=== PATIENT | female | born 1975 | race Two or more races ===

== ENCOUNTER 2017-04-17 15:51 | Inpatient (IN) | payer OTHER ==
[2017-04-17 17:48] VITALS: BMI 32.9
--- NOTE | 2017-04-17 20:49 | HP ---
CIWA Score - CIWA Score Nausea/Vomitin-No Nausea/No Vomiting Muscle Tremors: 3 Anxiety: 4-Mod. Anxious/Guarded Agitation: 4-Moderately Restless Paroxysmal Sweats: 3 Orientation: 3-Disoriented Date>2 days Tacttile Disturbances: 0-None Auditory Disturbances: 0-None Visual Disturbances: 0-None Headache: 0-None Present CIWA-Ar Total Score: 17 Admission ROS BHS - HPI Chief Complaint: SEEKING DETOX FOR ALCOHOLISM Allergies/Adverse Reactions: Allergies Allergy/AdvReac Type Severity Reaction Status Date / Time No Known Allergies Allergy Verified 04/17/17 19:18 History of Present Illness: 42 Y.O FEMALE ADMIITED TO DETOX FOR ALCOHOLISM AND OPIOID DEPENDENCE. CLIENT REPORTS SHE IS CURRENTLY ON MMTP AT [facility]. REPORTS LDM YESTERDAY METHADONE 50 MG. Exam Limitations: No Limitations - Ebola screening Have you traveled outside of the country in the last 21 days: No Have you had contact with anyone from an Ebola affected area: No Have you been sick,other than usual withdrawal symptoms: No Do you have a fever: No - Review of Systems Constitutional: Chills, Loss of Appetite, Malaise, Night Sweats, Changes in sleep EENT: reports: No Symptoms Reported Respiratory: reports: Shortness of Breath Cardiac: reports: Chest Pain GI: reports: No Symptoms Reported : reports: No Symptoms Reported Musculoskeletal: reports: Back Pain Integumentary: reports: No Symptoms Reported Neuro: reports: No Symptoms reported Endocrine: reports: No Symptoms Reported Hematology: reports: No Symptoms Reported Psychiatric: reports: Anxious, Depressed Other Systems: Reviewed and Negative Patient History - Patient Medical History Hx Anemia: No Hx Asthma: No Hx Chronic Obstructive Pulmonary Disease (COPD): No Hx Cancer: No Hx Cardiac Disorders: No Hx Congestive Heart Failure: No Hx Hypertension: No Hx Hypercholesterolemia: No Hx Pacemaker: No HX Cerebrovascular Accident: No Hx Seizures: No Hx Dementia: No Hx Diabetes: No Hx Gastrointestinal Disorders: No Hx Liver Disease: No Hx Genitourinary Disorders: No Hx Sexually Transmitted Disorders: No Hx Renal Disease (ESRD): No Hx Thyroid Disease: No Hx Human Immunodeficiency Virus (HIV): No Hx Hepatitis C: No Hx Depression: Yes (ON MEDS) Hx Suicide Attempt: Yes (LAST ATTEMPT 2005 SLASHING OF WRIST. PRESENTLY DENIES SI) Hx Bipolar Disorder: No Hx Schizophrenia: Yes (ON MEDS) - Patient Surgical History Past Surgical History: Yes Hx Neurologic Surgery: No Hx Cataract Extraction: No Hx Cardiac Surgery: No Hx Lung Surgery: No Hx Breast Surgery: No Hx Breast Biopsy: No Hx Appendectomy: No Hx Cholecystectomy: Yes ([facility]) Hx Genitourinary Surgery: No Hx Section: No Hx Orthopedic Surgery: No Anesthesia Reaction: No - PPD History Previous Implant?: No Documented Results: Positive w/o proof Implanted On Prior [facility] Admission?: No PPD to be Administered?: No - Reproductive History Patient is a Female of Child Bearing Age (11 -55 yrs old): Yes Last Menstrual Period: 03/24/17 Patient : No (NEGATIVE UHCG TODAY) - Smoking Cessation Smoking history: Current every day smoker Have you smoked in the past 12 months: Yes Aproximately how many cigarettes per day: 20 Hx Chewing Tobacco Use: No Initiated information on smoking cessation: Yes - Substance & Tx. History Hx Alcohol Use: Yes Hx Substance Use: Yes Substance Use Type: Alcohol, Cocaine, Heroin Hx Substance Use Treatment: Yes ([facility]) - Substances Abused Heroin Route: Inhalation Frequency: 3-6 times per week Amount used: 2 bag Age of first use: 25 Date of Last Use: 04/17/17 Cocaine Route: Smoking Frequency: Daily Amount used: $70 Age of first use: 26 Date of Last Use: 04/16/17 marijuana Route: Smoking Frequency: Daily Amount used: $10 Age of first use: 20 Date of Last Use: 04/16/17 Family Disease History - Family Disease History Family Disease History: Diabetes: Mother, Other: Father (ALCOHOLISM) Admission Physical Exam S - Vital Signs Vital Signs: Vital Signs - 24 hr 04/17/17 17:43 Temperature 97.5 F L Pulse Rate 80 Respiratory 18 Rate Blood Pressure 146/83 - Physical General Appearance: Yes: Appropriately Dressed, Mild Distress, Tremorous, Irritable, Sweating, Anxious HEENTM: Yes: EOMI, Normocephalic, IRAIS, Pharynx Normal, Nasal Congestion Respiratory: Yes: Chest Non-Tender, Lungs Clear, Normal Breath Sounds, No Respiratory Distress, No Accessory Muscle Use Neck: Yes: No masses,lesions,Nodules, Supple, Trachea in good position Breast: Yes: Breast Exam Deferred Cardiology: Yes: Regular Rhythm, Regular Rate, S1, S2 Abdominal: Yes: Normal Bowel Sounds, Non Tender, Soft, Protuberent Genitourinary: Yes: Within Normal Limits Back: Yes: Within Normal Limits Musculoskeletal: Yes: full range of Motion, Gait Steady Extremities: Yes: Normal Capillary Refill, Normal Range of Motion, Non-Tender, Tremors Neurological: Yes: dynamiter II-XII NML intact, Alert, Motor Strength 5/5 Integumentary: Yes: Warm, Moist Lymphatic: Yes: Within Normal Limits - Diagnostic (1) History of positive PPD Current Visit: Yes Status: Chronic (2) Nicotine dependence Current Visit: Yes Status: Chronic Qualifiers: Nicotine product type: cigarettes Substance use status: uncomplicated Qualified Code(s): F17.210 - Nicotine dependence, cigarettes, uncomplicated (3) Methadone maintenance therapy patient Current Visit: Yes Status: Chronic (4) Cannabis dependence, uncomplicated Current Visit: Yes Status: Chronic (5) Cocaine dependence, uncomplicated Current Visit: Yes Status: Chronic (6) Opioid dependence with withdrawal Current Visit: Yes Status: Chronic (7) Alcohol dependence with uncomplicated withdrawal Current Visit: Yes Status: Chronic Cleared for Admission [facility] - Detox or Rehab [facility] Level of Care: Medically Managed Detox Regimen/Protocol: Librium [facility] Breath Alcohol Content Breath Alcohol Content: 0 Urine Pregancy Test - Result Urine Test Results: Negative- NO Line Present Urine Drug Screen - Results Drug Screen Negative: No Urine Drug Screen Results: THC-Marijuana, JAZMINE-Cocaine, OPI-Opiates, MTD- Methadone
[2017-04-17] MEDS ORDERED: ACETAMINOPHEN 325 MG TABLET (FP) PO PRN (21:00)
[2017-04-17] MEDS ORDERED: MAGNESIUM CITRATE 300 ML BOTTLE PO PRN (21:00)
[2017-04-17] MEDS ORDERED: LOPERAMIDE HCL 2 MG CAPSULE PO PRN (21:00)
[2017-04-17] MEDS ORDERED: guaiFENesin/D-METHORPHAN HB 10 ML UNIT-DOSE CUPS PO PRN (21:00)
[2017-04-17] MEDS ORDERED: IBUPROFEN 400 MG TABLET (FP) PO PRN (21:00)
[2017-04-17] MEDS ORDERED: P-EPHED 60MG/TRIPROLIDI 2.5MG TABLET PO PRN (21:00)
[2017-04-17] MEDS ORDERED: MAGNESIUM HYDROX 2400MG/30ML ORAL SUSPENSION 30 ML CUP PO PRN (21:00)
[2017-04-17] MEDS ORDERED: hydrOXYzine PAMOATE 50 MG CAPSULE (FP) PO PRN (21:00)
[2017-04-17] MEDS ORDERED: chlordiazePOXIDE HCL 25 MG CAPSULE PO PRN (21:00)
[2017-04-17] MEDS ORDERED: diphenhydrAMINE HCL 50 MG CAPSULE PO PRN (21:00)
[2017-04-17] MEDS ORDERED: MENTHOL/PHENOL 1 EACH UD MM PRN (21:00)
[2017-04-17] MEDS ORDERED: MAG HYDROX/AL HYDROX/SIMETH 30 ML UNIT-DOSE CUP PO PRN (21:00)
[2017-04-17] MEDS: NICOTINE 21 MG/24 HOURS TOPICAL PATCH TD SCH (22:46)
[2017-04-17] MEDS: THIAMINE HCL 100 MG TABLET (FP) PO SCH (22:48)
[2017-04-17] MEDS: chlordiazePOXIDE HCL 25 MG CAPSULE PO SCH (22:48)
[2017-04-18 01:36] LABS: URINE APPEARANCE CLOUDY; URINE BILIRUBIN NEGATIVE (NEGATIVE); URINE BLOOD NEGATIVE (NEGATIVE); URINE GLUCOSE (UA) NEGATIVE (NEGATIVE); URINE KETONE NEGATIVE (NEGATIVE); URINE LEUK ESTERASE TRACE (NEGATIVE); URINE NITRITE POSITIVE (NEGATIVE); URINE PROTEIN NEGATIVE (NEGATIVE); URINE UROBILINOGEN 4.0 E.U/dl mg/dL (0.2-1.0)
[2017-04-18 01:37] LABS: URINE COLOR YELLOW
[2017-04-18 01:51] LABS: CALCIUM OXALATE CRYSTALS FEW /hpf (NONE SEEN); URINE BACTERIA RARE /hpf (NONE SEEN); URINE MUCUS FEW; URINE WBC 16 /hpf (3-5)
[2017-04-18] MEDS: chlordiazePOXIDE HCL 25 MG CAPSULE PO SCH ×4 (06:14→22:19)
--- NOTE | 2017-04-18 08:15 | CONSULT ---
[facility] Psychiatric Consult - Data Date of interview: 04/18/17 Admission source: [facility] Identifying data: This is 42 years old female with psychiatric hospitalization history, hisotry of Schizophrenia, inmtoxcated with: Alcohol, Cannabios, Cocaine and Nicotine Substance Abuse History: - Smoking Cessation. Smoking history: Current every day smoker. Have you smoked in the past 12 months: Yes. Aproximately how many cigarettes per day: 20. Hx Chewing Tobacco Use: No. Initiated information on smoking cessation: Yes. - Substance & Tx. History. Hx Alcohol Use: Yes. Hx Substance Use: Yes. Substance Use Type: Alcohol, Cocaine, Heroin. Hx Substance Use Treatment: Yes ([facility]). - Substances Abused. Heroin. Route: Inhalation. Frequency: 3-6 times per week. Amount used: 2 bag. Age of first use: 25. Date of Last Use: 04/17/17. Cocaine. Route: Smoking. Frequency: Daily. Amount used: $70. Age of first use: 26. Date of Last Use: 04/16/17. marijuana. Route: Smoking. Frequency: Daily. Amount used: $10. Age of first use: 20. Date of Last Use: 04/16/17 Medical History: PPD+ history, MMTP on 50mg per day, Psychiatric History: Patoent reports to carry Paranoid Schizophrenia with most recent psychiatric admission on 2016 at [facility] for safety, reports currently taking: Haldol 10mg po bid. Topamax 50mg poqd. Seroquel; 300mg po qhs. Effexor XL 300mg po qd. Cogentine 1mg po bid Physical/Sexual Abuse/Trauma History: Denies Additional Comment: Haldol 10mg po bid. Topamax 50mg poqd. Seroquel; 300mg po qhs. Effexor XL 300mg po qd. Cogentine 1mg po bid Mental Status Exam - Mental Status Exam Alert and Oriented to: Person Cognitive Function: Fair Patient Appearance: Unkempt Mood: Sad Affect: Flat Patient Behavior: Sedated Speech Pattern: Delayed Voice Loudness: Mildly Soft/Quiet Thought Process: Circumstantial Thought Disorder: Being Controlled Hallucinations: Denies Suicidal Ideation: Denies Homicidal Ideation: Denies Insight/Judgement: Fair Sleep: Difficulty falling asleep Appetite: Fair Muscle strength/Tone: Mild Hypotonicity Gait/Station: Shuffling Additional Comments: Haldol 10mg po bid. Topamax 50mg poqd. Seroquel; 300mg po qhs. Effexor XL 300mg po qd. Cogentine 1mg po bid Psychiatric Findings - Problem List ([place] 1, 2,3) (1) Alcohol dependence with uncomplicated withdrawal Current Visit: Yes Status: Chronic (2) Cannabis dependence, uncomplicated Current Visit: Yes Status: Chronic (3) Cocaine dependence, uncomplicated Current Visit: Yes Status: Chronic (4) Methadone maintenance therapy patient Current Visit: Yes Status: Chronic (5) Nicotine dependence Current Visit: Yes Status: Chronic Qualifiers: Nicotine product type: cigarettes Substance use status: uncomplicated Qualified Code(s): F17.210 - Nicotine dependence, cigarettes, uncomplicated (6) Opioid dependence with withdrawal Current Visit: Yes Status: Chronic (7) Paranoid schizophrenia Current Visit: Yes Status: Acute (8) Drug-induced mood disorder Current Visit: Yes Status: Acute - Initial Treatment Plan Initial Treatment Plan: Haldol 5 mg po bid. Topamax 50mg poqd. Seroquel; 300mg po qhs. Effexor XL 225 mg po qd. Cogentine 1mg po bid
[2017-04-18] MEDS ORDERED: METHADONE HCL 40 MG DISPERSABLE TABLET PO ONE (08:44)
[2017-04-18 09:50] LABS: MCH 30.1 pg (25.7-33.7); MCHC 33.3 g/dl (32.0-36.0); MEAN CELL VOLUME 90.2 fl (80-96); MEAN PLT VOLUME 8.9 fl (7.5-11.1); PLATELET COUNT 318 K/MM3 (134-434); RDW 13.8 % (11.6-15.6); WHITE BLOOD COUNT 8.1 K/mm3 (4.0-10.0)
[2017-04-18 10:24] LABS: ALBUMIN 3.1 g/dl (3.4-5.0); ALK PHOS 89 U/L (45-117); ANION GAP 8 (8-16); BILIRUBIN,TOTAL 0.3 mg/dL (0.2-1.0); CO2 23 mmol/L (21-32); GLUCOSE,RANDOM 95 mg/dL (74-106); SGOT/AST 9 U/L (15-37); SGPT/ALT 15 U/L (12-78); TOT PROT 6.2 g/dl (6.4-8.2)
[2017-04-18] MEDS: VENLAFAXINE HCL 75 MG E.R. CAPSULES (FP) PO SCH (10:50)
[2017-04-18] MEDS: PRENATAL VITAMINS W/ FOLIC ACID TABLET (FP) PO SCH (10:50)
[2017-04-18] MEDS: VENLAFAXINE HCL 150 MG E.R. CAPSULE PO SCH (10:50)
[2017-04-18] MEDS: BENZTROPINE MESYLATE 1 MG TABLET (FP) PO SCH ×2 (10:50→22:20)
[2017-04-18] MEDS: TOPIRAMATE 25 MG TABLET (FP) PO SCH (10:50)
[2017-04-18] MEDS: NICOTINE 21 MG/24 HOURS TOPICAL PATCH TD SCH (10:53)
[2017-04-18] MEDS ORDERED: PNEUMOC 13-VAL CONJ-DIP CRM/PF 0.5 ML DISP.SYRIN IM ONE (12:44)
[2017-04-18] MEDS ORDERED: FLU VACCINE QUAD 60 MCG/0.5 ML (MDV 17-18) IM ONE (12:44)
[2017-04-18 12:59] LABS: HIV 1 & 2 AB NEGATIVE; HIV 1 AGp24 NEGATIVE
--- NOTE | 2017-04-18 13:24 | EKG ---
Test Reason : Blood Pressure : / mmHG Vent. Rate : 075 BPM Atrial Rate : 075 BPM P-R Int : 168 ms QRS Dur : 094 ms QT Int : 406 ms P-R-T Axes : 036 061 039 degrees QTc Int : 453 ms NORMAL SINUS RHYTHM NONSPECIFIC ST AND T WAVE ABNORMALITY ABNORMAL ECG NO PREVIOUS ECGS AVAILABLE Confirmed by CHANDLER SCHWAB MD ([id number]) on 04/18/2017 1:24:01 PM Referred By: Thad Valiente Confirmed By:CHANDLER SCHWAB MD
[2017-04-18] MEDS: HALOPERIDOL 5 MG TABLET (FP) PO PRN (22:20)
[2017-04-18] MEDS: THIAMINE HCL 100 MG TABLET (FP) PO SCH (22:20)
[2017-04-18] MEDS: QUEtiapine FUMARATE 300 MG TABLET PO SCH (22:20)
[2017-04-19] MEDS ORDERED: METHADONE HCL 10 MG TABLET ONE (04:48)
[2017-04-19] MEDS ORDERED: METHADONE HCL 40 MG DISPERSABLE TABLET ONE (04:48)
[2017-04-19] MEDS ORDERED: METHADONE HCL 40 MG DISPERSABLE TABLET PO SCH (06:00)
[2017-04-19] MEDS ORDERED: METHADONE 40 MG, METHADONE 10 MG PO SCH (06:00)
[2017-04-19] MEDS: chlordiazePOXIDE HCL 25 MG CAPSULE PO SCH ×3 (07:06→17:16)
[2017-04-19] MEDS: METHADONE 40 MG, METHADONE 10 MG PO SCH (07:06)
[2017-04-19] MEDS: TOPIRAMATE 25 MG TABLET (FP) PO SCH (10:43)
[2017-04-19] MEDS: PRENATAL VITAMINS W/ FOLIC ACID TABLET (FP) PO SCH (10:43)
[2017-04-19] MEDS: VENLAFAXINE HCL 75 MG E.R. CAPSULES (FP) PO SCH (10:43)
[2017-04-19] MEDS: VENLAFAXINE HCL 150 MG E.R. CAPSULE PO SCH (10:43)
[2017-04-19] MEDS: NICOTINE 21 MG/24 HOURS TOPICAL PATCH TD SCH (10:44)
[2017-04-19] MEDS: BENZTROPINE MESYLATE 1 MG TABLET (FP) PO SCH ×2 (10:44→22:36)
[2017-04-19] MEDS: NICOTINE POLACRILEX 2 MG GUM BUC PRN ×3 (12:36→22:37)
--- NOTE | 2017-04-19 12:46 | PN ---
S CIWA - CIWA Score Nausea/Vomitin-No Nausea/No Vomiting Muscle Tremors: 4-Moderate,w/Arms Extend Anxiety: 3 Agitation: 4-Moderately Restless Paroxysmal Sweats: 3 Orientation: 0-Oriented Tacttile Disturbances: 0-None Auditory Disturbances: 0-None Visual Disturbances: 0-None Headache: 0-None Present CIWA-Ar Total Score: 14 BHS Progress Note (SOAP) Subjective: diarrhea sweats shakes body aches Objective: Vital Signs - 24 hr 04/18/17 04/18/17 04/18/17 13:09 19:08 22:14 Temperature 98.1 F 96.6 F L 98.2 F Pulse Rate 77 61 69 Respiratory 18 16 18 Rate Blood Pressure 125/67 106/58 127/79 04/19/17 04/19/17 04/19/17 00:30 03:30 06:00 Temperature 95.9 F L Pulse Rate 65 Respiratory 18 18 18 Rate Blood Pressure 116/65 04/19/17 09:45 Temperature 97.7 F Pulse Rate 76 Respiratory 20 Rate Blood Pressure 109/67 Laboratory Tests 04/17/17 04/18/17 04/18/17 23:58 07:50 07:50 WBC RBC Hgb Hct MCV MCH MCHC RDW Plt Count MPV Sodium Potassium Chloride Carbon Dioxide Anion Gap BUN Creatinine Creat Clearance w eGFR Random Glucose Calcium Total Bilirubin AST ALT Alkaline Phosphatase Total Protein Albumin Urine Color Yellow Urine Appearance Cloudy Urine pH 6.0 Ur Specific [place] 1.025 Urine Protein Negative Urine Glucose (UA) Negative Urine Ketones Negative Urine Blood Negative Urine Nitrite Positive Urine Bilirubin Negative Urine Urobilinogen 4.0 e.u/dl H Urine RBC None Urine WBC 16 Ur Epithelial Cells Moderate Calcium Oxalate Crystal Few Amorphous Urates Moderate Urine Bacteria Rare Urine Mucus Few RPR Titer Hepatitis C Antibody <0.1 HIV 1&2 Antibody Screen Negative HIV P24 Antigen Negative 04/18/17 04/18/17 04/18/17 07:50 07:50 07:50 WBC 8.1 RBC 4.25 Hgb 12.8 Hct 38.4 MCV 90.2 MCH 30.1 MCHC 33.3 RDW 13.8 Plt Count 318 MPV 8.9 Sodium 142 Potassium 4.0 Chloride 111 H Carbon Dioxide 23 Anion Gap 8 BUN 11 Creatinine 1.0 Creat Clearance w eGFR > 60 Random Glucose 95 Calcium 9.0 Total Bilirubin 0.3 AST 9 L ALT 15 Alkaline Phosphatase 89 Total Protein 6.2 L Albumin 3.1 L Urine Color Urine Appearance Urine pH Ur Specific [place] Urine Protein Urine Glucose (UA) Urine Ketones Urine Blood Urine Nitrite Urine Bilirubin Urine Urobilinogen Urine RBC Urine WBC Ur Epithelial Cells Calcium Oxalate Crystal Amorphous Urates Urine Bacteria Urine Mucus RPR Titer Nonreactive Hepatitis C Antibody HIV 1&2 Antibody Screen HIV P24 Antigen AAOx3 ambulating no acute distress Assessment: 04/18/17 12:45 withdrawal sx Plan: continue detox increase fluids
--- NOTE | 2017-04-19 12:47 | PN ---
[facility] CIWA - CIWA Score Nausea/Vomitin-No Nausea/No Vomiting Muscle Tremors: 3 Anxiety: 3 Agitation: 3 Paroxysmal Sweats: 3 Orientation: 0-Oriented Tacttile Disturbances: 0-None Auditory Disturbances: 0-None Visual Disturbances: 0-None Headache: 0-None Present CIWA-Ar Total Score: 12 [facility] Progress Note (SOAP) Subjective: sleepy sweats shakes interrupted sleep Objective: 04/19/17 12:46 Vital Signs Temperature 97.7 F 04/19/17 09:45 Pulse Rate 76 04/19/17 09:45 Respiratory Rate 20 04/19/17 09:45 Blood Pressure 109/67 04/19/17 09:45 O2 Sat by Pulse Oximetry (%) Laboratory Tests 04/17/17 04/18/17 04/18/17 23:58 07:50 07:50 WBC RBC Hgb Hct MCV MCH MCHC RDW Plt Count MPV Sodium Potassium Chloride Carbon Dioxide Anion Gap BUN Creatinine Creat Clearance w eGFR Random Glucose Calcium Total Bilirubin AST ALT Alkaline Phosphatase Total Protein Albumin Urine Color Yellow Urine Appearance Cloudy Urine pH 6.0 Ur Specific [place] 1.025 Urine Protein Negative Urine Glucose (UA) Negative Urine Ketones Negative Urine Blood Negative Urine Nitrite Positive Urine Bilirubin Negative Urine Urobilinogen 4.0 e.u/dl H Urine RBC None Urine WBC 16 Ur Epithelial Cells Moderate Calcium Oxalate Crystal Few Amorphous Urates Moderate Urine Bacteria Rare Urine Mucus Few RPR Titer Hepatitis C Antibody <0.1 HIV 1&2 Antibody Screen Negative HIV P24 Antigen Negative 04/18/17 04/18/17 04/18/17 07:50 07:50 07:50 WBC 8.1 RBC 4.25 Hgb 12.8 Hct 38.4 MCV 90.2 MCH 30.1 MCHC 33.3 RDW 13.8 Plt Count 318 MPV 8.9 Sodium 142 Potassium 4.0 Chloride 111 H Carbon Dioxide 23 Anion Gap 8 BUN 11 Creatinine 1.0 Creat Clearance w eGFR > 60 Random Glucose 95 Calcium 9.0 Total Bilirubin 0.3 AST 9 L ALT 15 Alkaline Phosphatase 89 Total Protein 6.2 L Albumin 3.1 L Urine Color Urine Appearance Urine pH Ur Specific [place] Urine Protein Urine Glucose (UA) Urine Ketones Urine Blood Urine Nitrite Urine Bilirubin Urine Urobilinogen Urine RBC Urine WBC Ur Epithelial Cells Calcium Oxalate Crystal Amorphous Urates Urine Bacteria Urine Mucus RPR Titer Nonreactive Hepatitis C Antibody HIV 1&2 Antibody Screen HIV P24 Antigen aaox3 ambulating no acute distress Assessment: 04/19/17 12:46 withdrawal sx Plan: continue detox increase fluids
--- NOTE | 2017-04-19 12:57 | PN ---
S Progress Note Note: 04/19/17
[2017-04-19] MEDS: QUEtiapine FUMARATE 300 MG TABLET PO SCH (22:36)
[2017-04-19] MEDS: THIAMINE HCL 100 MG TABLET (FP) PO SCH (22:36)
[2017-04-19] MEDS: chlordiazePOXIDE 5 MG CAPSULE PO SCH (22:37)
[2017-04-20] MEDS ORDERED: METHADONE HCL 40 MG DISPERSABLE TABLET ONE (04:44)
[2017-04-20] MEDS ORDERED: METHADONE HCL 10 MG TABLET ONE (04:45)
[2017-04-20] MEDS: chlordiazePOXIDE 5 MG CAPSULE PO SCH ×3 (05:31→17:45)
[2017-04-20] MEDS: METHADONE 40 MG, METHADONE 10 MG PO SCH (05:31)
[2017-04-20] MEDS: PRENATAL VITAMINS W/ FOLIC ACID TABLET (FP) PO SCH (11:05)
--- NOTE | 2017-04-20 13:32 | PN ---
BHS Progress Note (SOAP) Subjective: drowsy, slow speech, slow movement Objective: 04/20/17 13:31 Vital Signs - 8 hr 04/20/17 04/20/17 06:54 11:10 Temperature 97.5 F L 97.7 F Pulse Rate 68 76 Respiratory 18 18 Rate Blood Pressure 124/78 108/76 Laboratory Last Values WBC 8.1 K/mm3 (4.0-10.0) 04/18/17 07:50 RBC 4.25 M/mm3 (3.60-5.2) 04/18/17 07:50 Hgb 12.8 GM/dL (10.7-15.3) 04/18/17 07:50 Hct 38.4 % (32.4-45.2) 04/18/17 07:50 MCV 90.2 fl (80-96) 04/18/17 07:50 MCH 30.1 pg (25.7-33.7) 04/18/17 07:50 MCHC 33.3 g/dl (32.0-36.0) 04/18/17 07:50 RDW 13.8 % (11.6-15.6) 04/18/17 07:50 Plt Count 318 K/MM3 (134-434) 04/18/17 07:50 MPV 8.9 fl (7.5-11.1) 04/18/17 07:50 Sodium 142 mmol/L (136-145) 04/18/17 07:50 Potassium 4.0 mmol/L (3.5-5.1) 04/18/17 07:50 Chloride 111 mmol/L (98-107) H 04/18/17 07:50 Carbon Dioxide 23 mmol/L (21-32) 04/18/17 07:50 Anion Gap 8 (8-16) 04/18/17 07:50 BUN 11 mg/dL (7-18) 04/18/17 07:50 Creatinine 1.0 mg/dL (0.55-1.02) 04/18/17 07:50 Creat Clearance w eGFR > 60 (>60) 04/18/17 07:50 Random Glucose 95 mg/dL (74-106) 04/18/17 07:50 Calcium 9.0 mg/dL (8.5-10.1) 04/18/17 07:50 Total Bilirubin 0.3 mg/dL (0.2-1.0) 04/18/17 07:50 AST 9 U/L (15-37) L 04/18/17 07:50 ALT 15 U/L (12-78) 04/18/17 07:50 Alkaline Phosphatase 89 U/L (45-117) 04/18/17 07:50 Total Protein 6.2 g/dl (6.4-8.2) L 04/18/17 07:50 Albumin 3.1 g/dl (3.4-5.0) L 04/18/17 07:50 Urine Color Yellow 04/17/17 23:58 Urine Appearance Cloudy 04/17/17 23:58 Urine pH 6.0 (5.0-8.0) 04/17/17 23:58 Ur Specific [place] 1.025 (1.005-1.025) 04/17/17 23:58 Urine Protein Negative (NEGATIVE) 04/17/17 23:58 Urine Glucose (UA) Negative (NEGATIVE) 04/17/17 23:58 Urine Ketones Negative (NEGATIVE) 04/17/17 23:58 Urine Blood Negative (NEGATIVE) 04/17/17 23:58 Urine Nitrite Positive (NEGATIVE) 04/17/17 23:58 Urine Bilirubin Negative (NEGATIVE) 04/17/17 23:58 Urine Urobilinogen 4.0 e.u/dl mg/dL (0.2-1.0) H 04/17/17 23:58 Urine RBC None /hpf (0-3) 04/17/17 23:58 Urine WBC 16 /hpf (3-5) 04/17/17 23:58 Ur Epithelial Cells Moderate /hpf (FEW) 04/17/17 23:58 Calcium Oxalate Crystal Few /hpf (NONE SEEN) 04/17/17 23:58 Amorphous Urates Moderate /hpf (NONE SEEN) 04/17/17 23:58 Urine Bacteria Rare /hpf (NONE SEEN) 04/17/17 23:58 Urine Mucus Few 04/17/17 23:58 RPR Titer Nonreactive (NONREACTIVE) 04/18/17 07:50 Hepatitis C Antibody <0.1 s/co ratio (0.0-0.9) 04/18/17 07:50 HIV 1&2 Antibody Screen Negative 04/18/17 07:50 HIV P24 Antigen Negative 04/18/17 07:50 labs noted Assessment: 04/20/17 13:31 withdrawal sx Plan: continue detox
[2017-04-20] MEDS: VENLAFAXINE HCL 75 MG E.R. CAPSULES (FP) PO SCH (14:48)
[2017-04-20] MEDS: BENZTROPINE MESYLATE 1 MG TABLET (FP) PO SCH ×2 (14:48→22:29)
[2017-04-20] MEDS: VENLAFAXINE HCL 150 MG E.R. CAPSULE PO SCH (14:48)
[2017-04-20] MEDS: TOPIRAMATE 25 MG TABLET (FP) PO SCH (14:48)
--- NOTE | 2017-04-20 14:48 | PN ---
BHS Progress Note (SOAP) Subjective: Informed by nursing staff that patient is very drowsy. She is currently on Seroquel 300 mg po HS, Haldol 5 mg po BID, Cogentin 1 mg po BID Topiramate 50 mg po daily and Effexor XR 225 mg po daily. Order and instruction given to discontinue Seroquel
[2017-04-20] MEDS: NICOTINE 21 MG/24 HOURS TOPICAL PATCH TD SCH (14:49)
[2017-04-20] MEDS: chlordiazePOXIDE HCL 10 MG CAPSULE PO SCH (22:29)
[2017-04-20] MEDS: THIAMINE HCL 100 MG TABLET (FP) PO SCH (22:29)
[2017-04-20] MEDS: HALOPERIDOL 5 MG TABLET (FP) PO PRN (22:29)
[2017-04-21] MEDS ORDERED: METHADONE HCL 40 MG DISPERSABLE TABLET ONE (05:14)
[2017-04-21] MEDS ORDERED: METHADONE HCL 10 MG TABLET ONE (05:15)
[2017-04-21] MEDS: chlordiazePOXIDE HCL 10 MG CAPSULE PO SCH (05:53)
[2017-04-21] MEDS: METHADONE 40 MG, METHADONE 10 MG PO SCH (05:54)
--- NOTE | 2017-04-21 10:00 | PN ---
BHS Progress Note (SOAP) Subjective: Sweating,restless,Cx-ray to be done tomorrow because pt. is PPD+ Objective: 04/21/17 10:00 Vital Signs - 8 hr 04/21/17 06:37 Temperature 97.5 F L Pulse Rate 71 Respiratory 18 Rate Blood Pressure 101/50 Laboratory Tests 04/17/17 04/18/17 04/18/17 23:58 07:50 07:50 WBC RBC Hgb Hct MCV MCH MCHC RDW Plt Count MPV Sodium Potassium Chloride Carbon Dioxide Anion Gap BUN Creatinine Creat Clearance w eGFR Random Glucose Calcium Total Bilirubin AST ALT Alkaline Phosphatase Total Protein Albumin Urine Color Yellow Urine Appearance Cloudy Urine pH 6.0 Ur Specific [place] 1.025 Urine Protein Negative Urine Glucose (UA) Negative Urine Ketones Negative Urine Blood Negative Urine Nitrite Positive Urine Bilirubin Negative Urine Urobilinogen 4.0 e.u/dl H Urine RBC None Urine WBC 16 Ur Epithelial Cells Moderate Calcium Oxalate Crystal Few Amorphous Urates Moderate Urine Bacteria Rare Urine Mucus Few RPR Titer Hepatitis C Antibody <0.1 HIV 1&2 Antibody Screen Negative HIV P24 Antigen Negative 04/18/17 04/18/17 04/18/17 07:50 07:50 07:50 WBC 8.1 RBC 4.25 Hgb 12.8 Hct 38.4 MCV 90.2 MCH 30.1 MCHC 33.3 RDW 13.8 Plt Count 318 MPV 8.9 Sodium 142 Potassium 4.0 Chloride 111 H Carbon Dioxide 23 Anion Gap 8 BUN 11 Creatinine 1.0 Creat Clearance w eGFR > 60 Random Glucose 95 Calcium 9.0 Total Bilirubin 0.3 AST 9 L ALT 15 Alkaline Phosphatase 89 Total Protein 6.2 L Albumin 3.1 L Urine Color Urine Appearance Urine pH Ur Specific [place] Urine Protein Urine Glucose (UA) Urine Ketones Urine Blood Urine Nitrite Urine Bilirubin Urine Urobilinogen Urine RBC Urine WBC Ur Epithelial Cells Calcium Oxalate Crystal Amorphous Urates Urine Bacteria Urine Mucus RPR Titer Nonreactive Hepatitis C Antibody HIV 1&2 Antibody Screen HIV P24 Antigen labs noted,nitrite is Positive Assessment: 04/21/17 10:01 R/O UTI Plan: levaquin 500mg daily
[2017-04-21] MEDS: BENZTROPINE MESYLATE 1 MG TABLET (FP) PO SCH ×2 (10:41→22:31)
[2017-04-21] MEDS: NICOTINE 21 MG/24 HOURS TOPICAL PATCH TD SCH (10:41)
[2017-04-21] MEDS: VENLAFAXINE HCL 150 MG E.R. CAPSULE PO SCH (10:41)
[2017-04-21] MEDS: LEVOFLOXACIN 500 MG TABLET (FP) PO SCH (10:41)
[2017-04-21] MEDS: VENLAFAXINE HCL 75 MG E.R. CAPSULES (FP) PO SCH (10:41)
[2017-04-21] MEDS: TOPIRAMATE 25 MG TABLET (FP) PO SCH (10:41)
[2017-04-21] MEDS: PRENATAL VITAMINS W/ FOLIC ACID TABLET (FP) PO SCH (10:41)
[2017-04-21] MEDS: THIAMINE HCL 100 MG TABLET (FP) PO SCH (22:31)
[2017-04-22] MEDS ORDERED: METHADONE HCL 40 MG DISPERSABLE TABLET ONE (04:29)
[2017-04-22] MEDS ORDERED: METHADONE HCL 10 MG TABLET ONE (04:30)
[2017-04-22] MEDS: METHADONE 40 MG, METHADONE 10 MG PO SCH (05:47)
[2017-04-22 06:19] VITALS: BP 110/77; PULSE 69; TEMP 97.8
--- NOTE | 2017-04-22 09:19 | DS ---
[facility] Detox Discharge Summary Admission Date: 04/17/17 Discharge Date: 04/22/17 - History Present History: Alcohol Dependence, Cannabis Dependence, Cocaine Dependence, Opioid Dependence, MMTP - Physical Exam Results Vital Signs: Vital Signs Temperature 97.8 F 04/22/17 06:18 Pulse Rate 69 04/22/17 06:18 Respiratory Rate 16 04/22/17 06:18 Blood Pressure 110/77 04/22/17 06:18 O2 Sat by Pulse Oximetry (%) - Treatment Hospital Course: Detox Protocol Followed, Detoxed Safely, Responded well, Discharged Condition Good, Rehab Referral Accepted - Medication Discharge Medications: Ambulatory Orders Benztropine Mesylate [Cogentin -] 1 mg PO BID 04/17/17 Haloperidol [Haldol -] 10 mg PO BID 04/17/17 Quetiapine Fumarate [Seroquel -] 300 mg PO HS 04/17/17 Topiramate [Topamax] 50 mg PO BID 04/17/17 Venlafaxine HCl [Effexor -] 100 mg PO DAILY 04/17/17 Benztropine Mesylate [Cogentin -] 1 mg PO BID #60 tablet 04/18/17 Haloperidol [Haldol -] 5 mg PO BID PRN #60 tab 04/18/17 Quetiapine Fumarate [Seroquel -] 300 mg PO HS #30 tab 04/18/17 Topiramate [Topamax -] 50 mg PO DAILY #30 tablet 04/18/17 Venlafaxine HCl ER [Effexor Xr -] 75 mg PO DAILY #30 cap 04/18/17 Venlafaxine HCl ER [Effexor Xr -] 150 mg PO DAILY #30 cap 04/18/17 Levofloxacin [Levaquin -] 500 mg PO DAILY #6 tablet 04/22/17 - Diagnosis (1) Alcohol dependence with uncomplicated withdrawal Current Visit: Yes Status: Chronic (2) Cannabis dependence, uncomplicated Current Visit: Yes Status: Chronic (3) Cocaine dependence, uncomplicated Current Visit: Yes Status: Chronic (4) Methadone maintenance therapy patient Current Visit: Yes Status: Chronic (5) Nicotine dependence Current Visit: Yes Status: Chronic Qualifiers: Nicotine product type: cigarettes Substance use status: uncomplicated Qualified Code(s): F17.210 - Nicotine dependence, cigarettes, uncomplicated (6) Opioid dependence with withdrawal Current Visit: Yes Status: Chronic - AMA Did Patient Leave Against Medical Advice: No (referred to [facility])
[2017-04-22] MEDS: TOPIRAMATE 25 MG TABLET (FP) PO SCH (10:45)
[2017-04-22] MEDS: VENLAFAXINE HCL 150 MG E.R. CAPSULE PO SCH (10:46)
[2017-04-22] MEDS: VENLAFAXINE HCL 75 MG E.R. CAPSULES (FP) PO SCH (10:46)
[2017-04-22] MEDS: PRENATAL VITAMINS W/ FOLIC ACID TABLET (FP) PO SCH (10:46)
[2017-04-22] MEDS: LEVOFLOXACIN 500 MG TABLET (FP) PO SCH (10:46)
[2017-04-22] MEDS: BENZTROPINE MESYLATE 1 MG TABLET (FP) PO SCH (10:46)
== END 2017-04-22 11:20 | disposition home or self-care (01) | DRG 773 ==
LOC: YASAS 15:51 → Y6N 21:27
PROVIDERS: ADMIT Internal Medicine Addiction Medicine; ATTEND Internal Medicine Addiction Medicine
PROC: HZ2ZZZZ Detoxification Services for Substance Abuse Treatment (ICD-10-PCS; principal; 2017-04-17)
DX: F11.23 Opioid dependence with withdrawal (principal); F10.230 Alcohol dependence with withdrawal, uncomplicated; F14.10 Cocaine abuse, uncomplicated; F12.20 Cannabis dependence, uncomplicated; F17.210 Nicotine dependence, cigarettes, uncomplicated; F19.24 Other psychoactive substance dependence with psychoactive substance-induced mood disorder; F20.0 Paranoid schizophrenia; R76.11 Nonspecific reaction to tuberculin skin test without active tuberculosis; Z91.5 Personal history of self-harm
CPT/HCPCS: 36415; 71020-TC; 80053; 81003; 81015; 85027; 86593; 86803; 87389; 93005; 93010